=== PATIENT | female | born 1985 | race Two or more races ===

== ENCOUNTER 2025-03-20 05:24 | Emergency (ER) | payer MEDICAID, SELFPAY ==
[2025-03-20 05:25] VITALS: BMI 26.6
[2025-03-20 05:50] VITALS: BP 153/87; PULSE 74; RESP 19; TEMP 37.1; O2SAT 100
--- NOTE | 2025-03-20 06:14 | XR_ITS ---
Examination: Complete OB ultrasound, less than 14 weeks, transabdominal Date and time of exam: March 20, 2025, 0718 hours INDICATIONS: Positive home test with vaginal bleeding today Technique: Obstetrical ultrasound images less than 14 weeks performed via transabdominal imaging Findings: Uterus 8.4 cm endometrial stripe 1.1 cm No uterine mass or intrauterine gestation. Right ovary 3.1 cm arterial flow. Left ovary 3.4 cm Duraflow IMPRESSION: No uterine mass or intrauterine gestation
--- NOTE | 2025-03-20 06:14 | EDNOTE_ITS ---
<Statement entered by Miesha Nettles MD - 03/20/25 17:24> As co-signing physician, I was present and available for consult prn. I concur with the plan and care as documented by the midlevel provider. ED OB Contraction Preg RMI/HPI General Chief complaint: Vaginal Bleeding Stated complaint: VAGINAL BLEEDING, POSITIVE PREG TEST ON THURSDAY Time Seen by Provider: 03/20/25 06:06 Source: patient Arrival date/time: 03/20/25 05:24 40-year-old female with no known medical history presents to the emergency room with a chief complaint of vaginal bleeding and passing clots x 1 day. Patient had a positive test on Thursday. Her last menstrual cycle was February 09, 2025. She is a G4, P3 Mode of arrival: ambulatory Limitations: no limitations Related Data Previous Rx's ?Medication ?Instructions ?Recorded ibuprofen 800 mg tablet 800 mg PO TID PRN pain #30 t abs 07/05/21 Allergies Allergy/AdvReac Type Severity Reaction Status Date / Time No Known Allergies Allergy Verified 03/20/25 05:25 Review of Systems Review of Systems Systems Reviewed: All systems reviewed, normal except as documented Constitutional Constitutional: Reports system reviewed and no additional complaints, except as documented, Denies fatigue, Denies fever(s), Denies headache(s) and Denies weakness Eyes Eyes: Reports system reviewed and no additional complaints, except as documented, Denies blurry vision and Denies change in vision ENT Ears, Nose, Mouth, and Throat: Reports system reviewed and no additional complaints, except as documented, Denies otalgia, Denies headache(s), Denies nasal congestion, Denies throat swelling and Denies vertigo Cardiovascular Cardiovascular: Reports system reviewed and no additional complaints, except as documented, Denies chest pain, Denies dyspnea and Denies dyspnea on exertion Respiratory Respiratory: Reports system reviewed and no additional complaints, except as documented, Denies chest congestion, Denies cough, Denies dyspnea, Denies dyspnea on exertion and Denies wheezing Gastrointestinal Gastrointestinal: Reports system reviewed and no additional complaints, except as documented, Denies abdominal pain, Denies cramping, Denies nausea and Denies vomiting Genitourinary Genitourinary: Reports system reviewed and no additional complaints, except as documented and Reports abnormal vaginal bleeding Musculoskeletal Musculoskeletal: Reports system reviewed and no additional complaints, except as documented and Denies back pain Integumentary/Breasts Skin/Breast: Reports system reviewed and no additional complaints, except as documented and Denies wounds Neurologic Neurologic: Reports system reviewed and no additional complaints, except as documented, Denies confusion, Denies headache(s), Denies lack of coordination, Denies vertigo and Denies weakness Psychiatric Psychiatric: Reports system reviewed and no additional complaints, except as documented, Denies anxiety, Denies confusion, Denies depression, Denies paranoia, Denies suicidal ideation and Denies tactile hallucinations Endocrine Endocrine: Reports system reviewed and no additional complaints, except as documented and Denies fatigue Hematologic/Lymphatic Hematologic/Lymphatic: Reports system reviewed and no additional complaints, except as documented and Denies lymphadenopathy Allergic/Immunologic Allergic/Immunologic: Reports system reviewed and no additional complaints, except as documented, Denies throat swelling, Denies urticaria and Denies wheezing Past Medical History Social History SMOKING STATUS: Never smoker ED Exam General Limitations: Present no limitations General appearance: Present alert and in no apparent distress Head Head exam: Present atraumatic Eye Eye exam: Present normal appearance, PERRL and EOMI ENT ENT exam: Present normal exam, normal oropharynx and mucous membranes moist Neck Neck exam: Present normal inspection, full ROM and trachea midline Chest Chest inspection: Present normal inspection and symmetric chest wall rise Respiratory Respiratory exam: Present normal lung sounds bilaterally Cardiovascular Cardiovascular exam: Present regular rate, normal rhythm and normal heart sounds Abdominal Exam Abdominal exam: Present soft and normal bowel sounds; Absent distention, tenderness, guarding, rebound or rigidity Extremities Exam Extremities exam: Present normal inspection and full ROM Back Exam Back exam: Present normal inspection and full ROM Neurological Exam Neurological exam: Present alert, oriented X3 and CN II-XII intact Psychiatric Psychiatric exam: Present normal affect and normal mood Skin Skin exam: Present warm, dry, intact and normal color Course Quality Measures none Orders Category Date Time Status US OB <= 14 weeks fetus Stat Exams 03/20/25 06:14 Completed ABO/RH Type Stat Lab 03/20/25 07:07 Results Beta HCG,Quantitative Stat Lab 03/20/25 07:07 Completed CBC Stat Lab 03/20/25 07:07 Completed CMP [Comprehensive Metabolic Panel] Stat Lab 03/20/25 07:07 Completed UA [Urinalysis] Stat Lab 03/20/25 06:17 Completed Vital Signs Vital signs: Vital Signs Temperature 98.8 F 03/20/25 05:50 Pulse Rate 74 03/20/25 05:50 Respiratory Rate 19 03/20/25 05:50 Blood Pressure 153/87 H 03/20/25 05:50 Pulse Oximetry (%) 100 03/20/25 05:50 Oxygen Delivery Method Room Air 03/20/25 05:50 Vaginal Bleeding MDM Narrative MDM Narrative: 40-year-old female with no known medical history presents to the emergency room with a chief complaint of vaginal bleeding and passing clots x 1 day. Patient had a positive test on Thursday. Her last menstrual cycle was February 09, 2025. She is a G4, P3 Patient is hemodynamically stable and in no apparent distress Physical examination shows a soft nontender abdomen. There is no bilateral pelvic pain OB ultrasound at this time does not show an intrauterine mass or an intrauterine gestation. The patient's hCG levels are 49 The patient states she is still having some vaginal bleeding. Patient's H&H levels are within normal limits The patient was educated to return in 3 days for repeat ultrasound and blood work to confirm if this is a spontaneous Patient was discharged and educated to follow-up with primary care provider in the next 24 to 48 hours and return to the emergency room for any evidence of worsening signs or symptoms Patient data External records reviewed:: [facility] previous records Clinical information provided by:: patient Social determinants that could affect healthcare access:: none Patient has the following chronic illnesses:: No chronic illness How is presenting disease/condition affected by chronic disease/condition?: no chronic disease Evaluation data The following diagnostics were reviewed and interpreted by me:: lab results and radiology exam(s) Lab and/or radiology exams considered but not ordered:: Labs and radiology exams considered and ordered Interpretation Summary: OB ultrasound-Findings: Uterus 8.4 cm endometrial stripe 1.1 cm No uterine mass or intrauterine gestation. Right ovary 3.1 cm arterial flow. Left ovary 3.4 cm Duraflow IMPRESSION: No uterine mass or intrauterine gestation Medications / Prescriptions Medications or Prescriptions considered but not ordered:: No medication given Medication administrations:: No medication given Consultations Consultation(s) initiated? (list below): No Diagnosis Vaginal Bleeding Differential Diagnosis: threatened , dysfunctional uterine bleeding, ectopic without intrauterine and vaginal bleeding Most likely diagnosis given after review of the tests above:: Vaginal bleeding Admission Indicated Admission indicated?: not indicated Admission Request Was there a request for admission?: No Disposition Plan Disposition Plan: Discharge Discharge Attestation Discharge Attestation: The patient and all family members were given an opportunity to ask questions and understood the discharge instructions. Discharge instructions specifically effects, indications for sooner follow up or return to the emergency department, and the expected course of current diagnosis. Patient condition: Stable Discharge Plan Plan Patient Disposition: HOME (Self Care) Discharge Disposition comment: Stable Prescriptions/Referrals Prescriptions/Med Rec: No Action ibuprofen 800 mg tablet 800 mg PO TID PRN (Reason: pain) Qty: 30 0RF Referrals: No Primary/Family,Physician [Primary Care Provider] - In 1 week Problem List Clinical Impression: Vaginal bleeding Patient/Caregiver Discharge Instructions Education Materials: ED Dysfunctional Uterine Bleeding Additional Instructions: Por favor, acuda a flores ginec?logo/obstetra en las pr?ximas 24 a 48 horas. En kris momento, la ecograf?a no farr visualizado patricia gestaci?n intrauterina. Britney niveles actuales de hCG en gabo son de 49. Deber? regresar en 72 horas para repetir la ecograf?a y los an?lisis de gabo. Si observa cualquier signo de empeoramiento de los signos o s?ntomas, acuda a urgencias de inmediato. Print Language: Portuguese Stand Alone Forms: Courtney Award Info., Work/School Release, Patient Portal Info Letter PA/CHARTER COACH DRIVER Supervising Physician PA/CHARTER COACH DRIVER Supervising Physician: Dr. NETTLES
[2025-03-20 06:34] LABS: Collection Type, Urine Clean Catch
[2025-03-20 06:56] LABS: Bilirubin,Urine Negative (Negative); Blood,Urine 3+ (Negative); Glucose, Urine Negative (Negative); Ketones,Urine Negative (Negative); Leukocyte Esterase,Urine Positive (Negative); Nitrite,Urine Negative (Negative); PH,Urine 5.5 (5.0-7.0); Protein,Urine 1+ (Neg - Trace); RBC,Urine 6960 /hpf (0-3); Specific Gravity,Urine 1.023 (1.001-1.035); Squamous Epithelial Cell,Urine 2 /hpf (0-5); Urobilinogen,Urine Negative mg/dL (0.0-1.0); WBC,Urine 16 /hpf (0-5)
[2025-03-20 07:01] LABS: Clarity,Urine Turbid (Clear/Hazy); Color,Urine Red (Lt Yel-Yel)
[2025-03-20 07:21] LABS: Basophils # (Auto) 0.1 Thou/mm3 (0.0-0.2); Basophils % (Auto) 1 % (0-2.5); Eosinophils # (Auto) 0.0 Thou/mm3 (0.0-0.5); Eosinophils % (Auto) 0 % (0-10); Hematocrit 36.0 % (36.0-46.0); Hemoglobin 11.1 g/dL (12.0-16.0); Immature Granulocytes Auto 0.04 Thou/mm3 (0.00-0.00); Lymphocytes # (Auto) 1.8 Thou/mm3 (1.0-4.8); Lymphocytes % (Auto) 17 % (10-50); Mean Corpuscular HGB Conc 30.8 g/dl (31.0-37.0); Mean Corpuscular Hemoglobin 24.3 pg (25.0-35.0); Mean Corpuscular Volume 79 fL (80-100); Monocytes # (Auto) 0.6 Thou/mm3 (0.0-0.8); Monocytes % (Auto) 6 % (0-12); Neutrophils # (Auto) 7.8 Thou/mm3 (1.8-7.7); Neutrophils % (Auto) 76 % (37-80); Nucleated Red Blood Cell # 0.00 Thou/mm3 (0.00-0.00); Nucleated Red Blood Cell % 0 /100 WBC (0); Platelet Count 296 Thou/mm3 (140-440); RDW Standard Deviation 45.0 fL (36.4-46.3); Red Blood Count 4.57 Miln/mm3 (4.00-5.20); White Blood Count 10.3 Thou/mm3 (3.6-11.0)
[2025-03-20 07:48] LABS: Alanine Aminotransferase 9 U/L (10-49); Albumin, Serum 4.2 gm/dL (3.5-5.0); Albumin/Globulin Ratio 1.8 (1.2-2.2); Alkaline Phosphatase 53 U/L (46-116); Anion Gap 7 (7-16); Aspartate Amino Transferase 13 U/L (0-34); BUN/Creatinine Ratio 13 Ratio (12-20); Beta HCG,Quantitative 49 mIU/mL (<5.0); Bilirubin,Total 0.4 mg/dL (0.3-1.2); Blood Urea Nitrogen 10 mg/dL (9-23); Calcium 8.8 mg/dL (8.3-10.6); Calcium (Corrected) 8.8 mg/dL (8.5-10.1); Carbon Dioxide 26.2 mMol/L (20.0-31.0); Chloride 108 mMol/L (98-107); Creatinine (Component) 0.8 mg/dL (0.6-1.3); Estimated Creatinine Clearance 91.4 mL/min (>60); Globulin 2.4 gm/dL (2.3-3.5); Glucose 96 mg/dL (74-106); Osmolality,Calculated 280 (275-295); Potassium 4.2 mMol/L (3.4-5.1); Sodium 141 mMol/L (136-145); Total Protein 6.6 gm/dL (5.7-8.2); eGFR > 60 See Note
[2025-03-20 08:07] VITALS: BP 158/87; PULSE 76; RESP 19; TEMP 37.4; O2SAT 99
== END 2025-03-20 08:16 | disposition home or self-care (01) ==
PROVIDERS: Nurse Practitioner Family; Emergency Provider Emergency Medicine
DX: O46.90 Antepartum hemorrhage, unspecified, unspecified trimester (principal)
CPT/HCPCS: 36415; 76801; 80053; 81001; 84702; 85025; 86900; 86901; 99283

== ENCOUNTER 2025-03-23 08:55 | Emergency (ER) | payer MEDICAID, SELFPAY ==
[2025-03-23 09:06] VITALS: BP 136/83; PULSE 77; RESP 16; TEMP 37.1; O2SAT 100; BMI 26.9
--- NOTE | 2025-03-23 09:09 | EDNOTE_ITS ---
<Statement entered by Miesha Nettles MD - 03/23/25 14:59> As co-signing physician, I was present and available for consult prn. I concur with the plan and care as documented by the midlevel provider. ED General RME/HPI General Chief complaint: Vaginal Bleeding Stated complaint: 4 weeks OB, vaginal bleeding 2 days ago Time Seen by Provider: 03/23/25 09:05 Arrival date/time: 03/23/25 08:55 CC: Miscarriage HPI patient is a G4, P2 who was seen here 2 days ago for miscarriage, was told to return for recheck of hCG to make sure she has no more retained products. Patient denies vaginal bleeding at lower abdominal pain or low back pain no other complaints at this time. Related Data Previous Rx's ?Medication ?Instructions ?Recorded ibuprofen 800 mg tablet 800 mg PO TID PRN pain #30 t abs 07/05/21 Allergies Allergy/AdvReac Type Severity Reaction Status Date / Time No Known Allergies Allergy Verified 03/23/25 09:00 Review of Systems Review of Systems Narrative Review of Systems: GEN: No fever, no chills, no weight loss EYES: No discharge, no visual changes, no pain HEENT: No ear pain, no congestion, no sore throat PULM: No shortness of breath, no cough, no congestion CV: No chest pain, no dyspnea on exertion, no palpitations GI: No nausea, no vomiting, no diarrhea, no pain, no constipation : No frequency, no urgency, no dysuria MUSC/SKEL: No joint pain, no back pain SKIN: No rash PSYCH: No hallucinations, no depression HEME/LYMPH: No easy bleeding or bruising tendencies NEURO: No weakness, no headache Past Medical History Social History SMOKING STATUS: Never smoker ED Exam Narrative Physical exam: [General: Not in any acute distress Head normocephalic HEENT: Within acceptable limits Neck is supple nontender Chest equal chest rise nontender to palpation Respiratory: Clear to auscultation no wheezes crackles or rubs CV: Rate rhythm is regular no murmurs rubs or clicks Abdomen is distended secondary to body habitus soft nontender no masses positive bowel sounds all 4 quadrants Back: No CVA tenderness no spinous process tenderness from cervical spine thoracic and lumbar spine Skin: Intact no petechiae rash induration ulceration or crepitus Extremities: Moving all extremity against resistance cap refill less than 2 seconds neurosensory intact Neuro: Awake alert oriented x3 Glascow coma 15 no focal deficits] Course Quality Measures none Orders Category Date Time Status Beta HCG,Quantitative Stat Lab 03/23/25 09:44 Completed CBC Stat Lab 03/23/25 09:44 Completed Vital Signs Vital signs: Vital Signs Temperature 98.7 F 03/23/25 09:06 Pulse Rate 77 03/23/25 09:06 Respiratory Rate 16 03/23/25 09:06 Blood Pressure 136/83 H 03/23/25 09:06 Pulse Oximetry (%) 100 03/23/25 09:06 Oxygen Delivery Method Room Air 03/23/25 09:06 Discharge Plan Plan Patient Disposition: HOME (Self Care) Patient condition on transfer: Stable Prescriptions/Referrals Prescriptions/Med Rec: No Action ibuprofen 800 mg tablet 800 mg PO TID PRN (Reason: pain) Qty: 30 0RF Referrals: Giancarlo Willis MD [Primary Care Provider] - In 1 week Problem List Clinical Impression: Miscarriage Patient/Caregiver Discharge Instructions Education Materials: Understanding Miscarriage: Recovery, ED MISCARRIAGE Completed Print Language: Mongolian Stand Alone Forms: [employer] Info., Work/School Release, Patient Portal Info Letter PA/GEOGRAPHY FACULTY MEMBER Supervising Physician PA/GEOGRAPHY FACULTY MEMBER Supervising Physician: Cruz Gao ENP [facility] Clinical Information Provided by patient Medical Records Reviewed [facility] Meds/Rx Considered, not Ordered None Labs/Rad/Tests considered, not Ordered None Chronic Illness/Social Conditions Add or document further as needed: Miscarriage EKG EKG not done Lab Interpretation Lab(s) interpretation(s): Quant of hCG is currently 9, is decreased from 16 3 days ago to 9 Imaging Imaging interpretation: none Diagnosis Differential diagnosis: SAB retained product vaginitis Differential dx and/or dx ruled out: Patient's quantitative hCG is in single digits now she advised to get a follow- up in 1 week she responded by showing me an appointment card for Dr Blunt. Patient advised if there is a worsening of symptoms fever vaginal or lower a bdominal pain heavy bleeding she is to return immediately to the emergency room for reevaluation.
[2025-03-23 09:56] LABS: Basophils # (Auto) 0.0 Thou/mm3 (0.0-0.2); Basophils % (Auto) 1 % (0-2.5); Eosinophils # (Auto) 0.1 Thou/mm3 (0.0-0.5); Eosinophils % (Auto) 1 % (0-10); Hematocrit 35.8 % (36.0-46.0); Hemoglobin 11.1 g/dL (12.0-16.0); Immature Granulocytes Auto 0.01 Thou/mm3 (0.00-0.00); Lymphocytes # (Auto) 2.0 Thou/mm3 (1.0-4.8); Lymphocytes % (Auto) 39 % (10-50); Mean Corpuscular HGB Conc 31.0 g/dl (31.0-37.0); Mean Corpuscular Hemoglobin 24.4 pg (25.0-35.0); Mean Corpuscular Volume 79 fL (80-100); Monocytes # (Auto) 0.3 Thou/mm3 (0.0-0.8); Monocytes % (Auto) 6 % (0-12); Neutrophils # (Auto) 2.7 Thou/mm3 (1.8-7.7); Neutrophils % (Auto) 53 % (37-80); Nucleated Red Blood Cell # 0.00 Thou/mm3 (0.00-0.00); Nucleated Red Blood Cell % 0 /100 WBC (0); Platelet Count 268 Thou/mm3 (140-440); RDW Standard Deviation 43.8 fL (36.4-46.3); Red Blood Count 4.55 Miln/mm3 (4.00-5.20); White Blood Count 5.2 Thou/mm3 (3.6-11.0)
[2025-03-23 10:13] LABS: Beta HCG,Quantitative 9 mIU/mL (<5.0)
== END 2025-03-23 10:57 | disposition home or self-care (01) ==
PROVIDERS: Registered Nurse General Practice; Emergency Provider Emergency Medicine; PCP Family Medicine
DX: O03.9 Complete or unspecified spontaneous abortion without complication (principal)
CPT/HCPCS: 36415; 84702; 85025; 99283

== ENCOUNTER 2025-03-30 15:36 | Emergency (ER) | payer MEDICAID, SELFPAY ==
[2025-03-30 15:56] VITALS: BP 130/75; PULSE 86; RESP 16; TEMP 36.9; O2SAT 99; BMI 26.4
--- NOTE | 2025-03-30 17:22 | EDNOTE_ITS ---
ED Recheck Abnl Lab Rx-RME/HPI General Chief Complaint: Recheck/Abnormal Lab/Rx Stated Complaint: Needs HCG level checked Time Seen by Provider: 03/30/25 15:49 Arrival date/time: 03/30/25 15:36 40-year-old female presents to the emergency department today requesting to have her hCG checked patient reports that she was told to come in to have her hCG checked in the emergency department on her last visit in the ER Limitations: no limitations Related Data Previous Rx's ?Medication ?Instructions ?Recorded ibuprofen 800 mg tablet 800 mg PO TID PRN pain #30 t abs 07/05/21 Allergies Allergy/AdvReac Type Severity Reaction Status Date / Time No Known Allergies Allergy Verified 03/30/25 15:40 Review of Systems Review of Systems Systems Reviewed: All systems reviewed, normal except as documented Constitutional Constitutional: Reports system reviewed and no additional complaints, except as documented, Denies fever(s) and Denies headache(s) Eyes Eyes: Reports system reviewed and no additional complaints, except as documented and Denies blurry vision ENT Ears, Nose, Mouth, and Throat: Reports system reviewed and no additional complaints, except as documented, Denies headache(s), Denies nasal congestion and Denies nasal discharge Cardiovascular Cardiovascular: Reports system reviewed and no additional complaints, except as documented, Denies chest pain and Denies dyspnea Respiratory Respiratory: Reports system reviewed and no additional complaints, except as documented, Denies chest congestion, Denies cough and Denies dyspnea Gastrointestinal Gastrointestinal: Reports system reviewed and no additional complaints, except as documented and Denies abdominal pain Integumentary/Breasts Skin/Breast: Reports system reviewed and no additional complaints, except as documented and Denies rash Neurologic Neurologic: Reports system reviewed and no additional complaints, except as documented, Reports as per HPI and Denies headache(s) Past Medical History Social History SMOKING STATUS: Never smoker ED Exam General Limitations: Present no limitations General appearance: Present alert and in no apparent distress Head Head exam: Present atraumatic Eye Eye exam: Present normal appearance, PERRL and EOMI ENT ENT exam: Present normal exam, normal oropharynx and mucous membranes moist Neck Neck exam: Present normal inspection, full ROM and trachea midline Chest Chest inspection: Present normal inspection and symmetric chest wall rise Respiratory Respiratory exam: Present normal lung sounds bilaterally Cardiovascular Cardiovascular exam: Present regular rate, normal rhythm and normal heart sounds Abdominal Exam Abdominal exam: Present soft and normal bowel sounds Extremities Exam Extremities exam: Present normal inspection and full ROM Back Exam Back exam: Present normal inspection and full ROM Neurological Exam Neurological exam: Present alert, oriented X3 and CN II-XII intact Psychiatric Psychiatric exam: Present normal affect and normal mood Skin Skin exam: Present warm, dry, intact and normal color Course Quality Measures none Vital Signs Vital signs: Vital Signs Temperature 98.4 F 03/30/25 15:56 Pulse Rate 86 03/30/25 15:56 Respiratory Rate 16 03/30/25 15:56 Blood Pressure 130/75 03/30/25 15:56 Pulse Oximetry (%) 99 03/30/25 15:56 Oxygen Delivery Method Room Air 03/30/25 15:56 O2 saturation 99% room air within normal limits Recheck / Abnormal Lab / Rx MDM Narrative MDM Narrative:: 40-year-old female presents to the emergency department today requesting to have her hCG checked patient reports that she was told to come in to have her hCG checked in the emergency department on her last visit in the ER I reviewed the patient's previous visits patient has already had a downtrending hCG 03/20 her hCG was 49 8/7 her hCG was 9 I do not believe there is any clinical indication at this time to repeat lab work I believe patient had a missed patient reports no bleeding or pain at this time Patient discharged home in no distress to follow-up with primary care doctor in the next 24 to 48 hours and for any worsening symptoms to return to the ER immediately Patient data External records reviewed:: [facility] previous records Clinical information provided by:: patient Social determinants that could affect healthcare access:: none Patient has the following chronic illnesses:: None How is presenting disease/condition affected by chronic disease/condition?: no chronic disease Evaluation data The following diagnostics were reviewed and interpreted by me:: lab results Lab and/or radiology exams considered but not ordered:: Reviewed labs Interpretation Summary: Reviewed labs Medications / Prescriptions Medications or Prescriptions considered but not ordered:: No meds Medication administrations:: No meds Consultations Consultation(s) initiated? (list below): No Diagnosis Recheck Differential Diagnosis: other (Missed , threatened ) Most likely diagnosis given after review of the tests above:: Admission Indicated Admission indicated?: not indicated Admission Request Was there a request for admission?: No Disposition Plan Disposition Plan: Discharge Discharge Attestation Discharge Attestation: The patient and all family members were given an opportunity to ask questions and understood the discharge instructions. Discharge instructions specifically effects, indications for sooner follow up or return to the emergency department, and the expected course of current diagnosis. Patient condition: Stable Discharge Plan Plan Patient Disposition: HOME (Self Care) Discharge Disposition comment: Stable Prescriptions/Referrals Prescriptions/Med Rec: No Action ibuprofen 800 mg tablet 800 mg PO TID PRN (Reason: pain) Qty: 30 0RF Problem List Clinical Impression: , missed Patient/Caregiver Discharge Instructions Education Materials: ED Missed Miscarriage Additional Instructions: Please follow up with [facility] as needed for worsening symptoms return immediately Print Language: Telugu Stand Alone Forms: Courtney Award Info., Patient Portal Info Letter PA/[employer] TRUCK DRIVER Supervising Physician PA/[employer] TRUCK DRIVER Supervising Physician: Dr salas
== END 2025-03-30 17:29 | disposition home or self-care (01) ==
PROVIDERS: Emergency Provider Family Medicine
DX: O02.1 Missed abortion (principal)
CPT/HCPCS: 99282